=== PATIENT | male | born 1965 | race Caucasian/White ===

== ENCOUNTER 2019-09-11 18:27 | Emergency (ER) | payer BC ==
[2019-09-11 18:32] VITALS: BP 146/99; PULSE 68; TEMP 98.1; BMI 25.7
[2019-09-11] MEDS ORDERED: KETOROLAC TROMETHAMINE 60 MG/2 ML VIAL IM ONE (21:24)
[2019-09-11] MEDS ORDERED: KETOROLAC TROMETHAMINE 60 MG/2 ML VIAL ONE (21:25)
--- NOTE | 2019-09-12 00:35 | PDOC ---
Documentation entered by Ly Maki SCRIBE, acting as scribe for Lu Galaviz MD. Lu Galaviz MD: This documentation has been prepared by the Glynn azevedo Aiswarya, SCRIBE, under my direction and personally reviewed by me in its entirety. I confirm that the documentation accurately reflects all work, treatment, procedures, and medical decision making performed by me. History of Present Illness - General Chief Complaint: Injury Stated Complaint: fall Time Seen by Provider: 09/11/19 19:15 History Source: Patient Exam Limitations: No Limitations - History of Present Illness Initial Comments: 09/11/19 20:58 The patient is a 54 year old male, with a significant PMH of HTN ( no meds) , who presents to the emergency department with right arm pain s/p a fall that occurred today. The patient states his partner just mopped the steps when patient slipped and fell on his back. He endorses pain to the right ribs and right arm. Pain is exacerbated with flexion and extension, no medication was taken. Per patients partner, patient fell a week ago in the bathroom and endorsed a cold for 2-3 weeks. The patient denies numbness or tingling. Denies chest pain, shortness of breath, headache and dizziness. Denies fever, chills, nausea, vomiting, diarrhea and constipation. Allergies: NKDA Past surgical history: None reported Social history: None reported PCP: None reported Past History - Past Medical History Allergies/Adverse Reactions: Allergies Allergy/AdvReac Type Severity Reaction Status Date / Time No Known Allergies Allergy Verified 09/11/19 18:28 Home Medications: Ambulatory Orders No Home Medications 0 dose .ROUTE UTDICT 11/08/13 Diclofenac Sodium [Voltaren -] 75 mg PO BID PRN #20 tablet. 09/11/19 COPD: No CHF: No HTN: Yes (NO MEDS) - Psycho Social/Smoking Cessation Hx Smoking History: Never smoked Have you smoked in the past 12 months: No Hx Alcohol Use: No Drug/Substance Use Hx: No Substance Use Type: None Review of Systems - Review of Systems Able to Perform ROS?: Yes Comments:: 09/11/19 20:59 GENERAL/CONSTITUTIONAL: No fever or chills. No weakness. HEAD, EYES, EARS, NOSE AND THROAT: No change in vision. No ear pain or discharge. No sore throat. CARDIOVASCULAR: No chest pain or shortness of breath. RESPIRATORY: No cough, wheezing, or hemoptysis. GASTROINTESTINAL: No nausea, vomiting, diarrhea or constipation. GENITOURINARY: No dysuria, frequency, or change in urination. MUSCULOSKELETAL: +right arm and rib pain. SKIN: No rash NEUROLOGIC: No headache, vertigo, loss of consciousness, or change in strength/ sensation. ENDOCRINE: No increased thirst. No abnormal weight change. HEMATOLOGIC/LYMPHATIC: No anemia, easy bleeding, or history of blood clots. ALLERGIC/IMMUNOLOGIC: No hives or skin allergy. *Physical Exam - Vital Signs Last Vital Signs Temp Pulse Resp BP Pulse Ox 98.1 F 68 17 146/99 99 09/11/19 18:28 09/11/19 18:28 09/11/19 18:28 09/11/19 18:28 09/11/19 18:28 - Physical Exam Comments: 09/11/19 21:17 ADULT EXAM GENERAL: Awake, alert, and fully oriented, in no acute distress HEAD: No signs of trauma LUNGS: Breath sounds equal, clear to auscultation bilaterally. No wheezes, and no crackles HEART: Regular rate and rhythm, normal S1 and S2, no murmurs, rubs or gallops ABDOMEN: Soft, nontender, normoactive bowel sounds. No guarding, no rebound. No masses EXTREMITIES:+mild tenderness on palpation of ribs 6,7,8 and anterior axillary line. Tenderness of palpation of the proximal humerus and pain on abduction. No deformity or edema noted. NEUROLOGICAL: Cranial nerves II through XII grossly intact. Normal speech, normal gait SKIN: Warm, Dry, normal turgor, no rashes or lesions noted. ED Treatment Course - RADIOLOGY Radiology Studies Ordered: Category Date Time Status HUMERUS-RIGHT [RAD] Stat Radiology 09/11/19 20:44 Taken RIBS RIGHT SIDE [RAD] Stat Radiology 09/11/19 20:44 Taken Medical Decision Making - Medical Decision Making as noted above, this 54-year-old man with a history of hypertension but no other significant medical issues, presents with history of slipping and falling down several stairs (staircase was recently cleaned and surface was wet). There was no significant head or neck injury and patient denies LOC. Patient's complaint is pain in the upper portion of his right upper arm (just below shoulder) with pain worsened with movement of his arm. Also, the patient slipped and fell last week striking his right lower rib cage. Although the pain in this area is improving, it has not completely resolved. Exam as noted. Right humerus and right rib series x-rays performed. Right humerus x-ray reviewed by Dr. Carroll of the radiology staff: Nondisplaced fracture of the greater tuberosity of the humerus. No other abnormality seen. Right rib series preliminary interpretation by me: No evidence of acute fracture dislocation of ribs. PA view of the chest reveals no evidence of effusion/infiltrates or masses Results discussed with the patient and his . Toradol 60 mg IM given for pain relief. Patient does not have an orthopedist and will be referred to [facility] for follow-up within the next few days. Sling placed on right arm. Patient was advised that the sling must be kept in place at all times until seen by the orthopedist. Diclofenac 75 mg twice a day as needed for pain (#20) prescription sent to his pharmacy Discharge - Discharge Information Problems reviewed: Yes Clinical Impression/Diagnosis: Shoulder fracture, right Qualifiers: Encounter type: initial encounter Fracture type: closed Qualified Code(s): S42.91XA - Fracture of right shoulder girdle, part unspecified, initial encounter for closed fracture Condition: Stable Disposition: HOME - Additional Discharge Information Prescriptions: Diclofenac Sodium [Voltaren -] 75 mg PO BID PRN #20 tablet.dr MORRISON Reason: Pain - Follow up/Referral Referrals: Emre Rebollar MD [Staff Physician] - - Patient Discharge Instructions Patient Printed Discharge Instructions: DI for Shoulder Fracture Additional Instructions: Ice to top of right shoulder as much as possible for the next 48 hours Keep right arm sling in place at all times Diclofenac 75 mg twice a day as needed for pain (take with food) Return to ER if you have severe pain, numbness or weakness in the right arm Follow-up with Dr. Rebollar/Dr. Payne within the next 2 to 3 days (call office in the morning) Follow-up with your general medical doctor within the next week - Post Discharge Activity
== END 2019-09-11 21:37 | disposition home or self-care (01) ==
LOC: FER 18:27
PROC: 3E0233Z Introduction of Anti-inflammatory into Muscle, Percutaneous Approach (ICD-10-PCS; principal; 2019-09-11)
DX: S42.91XA Fracture of right shoulder girdle, part unspecified, initial encounter for closed fracture (principal); W18.39XA Other fall on same level, initial encounter; Y93.89 Activity, other specified; Y92.89 Other specified places as the place of occurrence of the external cause; I10 Essential (primary) hypertension
CPT/HCPCS: 71101-TC-RT-FY; 73060-TC-RT-FY; 99281-25

== ENCOUNTER 2021-05-02 21:27 | Emergency (ER) | payer BC ==
[2021-05-02 21:37] VITALS: PULSE 79; TEMP 98.8; BMI 25.9
[2021-05-02] MEDS ORDERED: VANCOMYCIN 1 GM in D5W (PRE-DOCKED) 1,000 MG/250 ML IVPB ONE (21:41)
[2021-05-02] MEDS ORDERED: PIPERACILLIN/TAZOB 3.375 GM 3.375 GM in DEXTROSE 5%-WATER - 50 ML IVPB ONE (21:42)
[2021-05-02] MEDS ORDERED: VANCOMYCIN 1,000 MG VIAL (RESTRICTED TO ID ONLY) ONE (21:43)
[2021-05-02] MEDS ORDERED: PIPERACILLIN/TAZOBACTAM 3.375 GM VIAL IVPB ONE (21:43)
[2021-05-02 22:13] LABS: BASO % 0.5 % (0-2.0); EOS % 2.4 % (0-4.5); HEMATOCRIT 42.1 % (35.4-49); HEMOGLOBIN 14.4 GM/dl (11.7-16.9); LYMPH % 36.7 % (8-40); MCH 31.1 pg (25.7-33.7); MCHC 34.3 g/dl (32.0-35.9); MEAN CELL VOLUME 90.7 fl (80-96); MEAN PLT VOLUME 8.9 fl (7.5-11.1); MONO % 8.9 % (3.8-10.2); NEUT % 51.5 % (42.8-82.8); PLATELET COUNT 248 10^3/uL (134-434); RBC 4.64 M/mm3 (4.00-5.60); RDW 11.4 % (11.9-15.9); WHITE BLOOD COUNT 6.9 K/mm3 (4.0-10.8)
[2021-05-02 22:24] LABS: ALBUMIN 4.1 g/dl (3.4-5.0); BILIRUBIN,TOTAL 0.8 mg/dl (0.2-1); CALCIUM 9.1 mg/dl (8.5-10); TOT PROT 6.9 g/dl (6.4-8.2)
[2021-05-02 23:49] VITALS: BP 142/100
[2021-05-02] MEDS ORDERED: SILVER SULFADIAZINE 1% TOP CREAM 50 GM JAR TP ONE (23:50)
== END 2021-05-03 00:23 | disposition home or self-care (01) ==
LOC: FER 21:27
PROC: 3E033NZ Introduction of Analgesics, Hypnotics, Sedatives into Peripheral Vein, Percutaneous Approach (ICD-10-PCS; principal; 2021-05-02)
PROC: 3E033GC Introduction of Other Therapeutic Substance into Peripheral Vein, Percutaneous Approach (ICD-10-PCS; 2021-05-02)
DX: L03.115 Cellulitis of right lower limb (principal)
CPT/HCPCS: 36415; 80053; 85025; 87040; 87070; 87205; 99285-25